=== PATIENT | male | born 1980 | race Caucasian/White ===

== ENCOUNTER 2017-10-23 18:56 | Inpatient (IN) | payer OTHER ==
[~2017-10-23] VITALS: Ht 175.3 cm; Wt 163.3 kg
--- NOTE | ~2017-10-23 | H ---
[facility] [place] [address] HISTORY AND PHYSICAL Name: [facility] Room #: 427-P ADM IN M.R.#: [id number] Admission: 10/23/17 Attend Phys: Whit Kolb Discharge: Date of : 78 Report #: [id number] THIS REPORT FOR: //name// CC: Wilbert Trujillo CHIEF COMPLAINT: Abdominal pain. HISTORY OF PRESENT ILLNESS: The patient is a 37-year-old gentleman who was seen through the Emergency Room and admitted with 2-3 days of abdominal pain. Symptoms began in the left lower quadrant, was radiating to the scrotum. He was seen in the office yesterday and recommended for a CT and was placed on empiric antibiotics; however, he worsened overnight with fever and cold sweats with nausea and presented to the ER. CT has revealed an acute diverticulitis with a microperforation. PAST MEDICAL HISTORY: None. PAST SURGICAL HISTORY: He has had some elbow surgery. FAMILY HISTORY: Noncontributory. SOCIAL HISTORY: No chronic alcohol or tobacco use. ALLERGIES: None. MEDICATIONS: Naproxen. REVIEW OF SYSTEMS: He denies headache, chest pain, shortness of breath, abdominal pain, nausea, vomiting, diarrhea, constipation, dysuria, syncope. OBJECTIVE: VITAL SIGNS: Temperature 37.2, pulse 112, respirations 18, blood pressure 122/73, O2 sat ____ on room air. GENERAL: He is awake and alert, in no distress. HEAD AND NECK: Unremarkable. LUNGS: Clear. HEART: Regular. ABDOMEN: Obese, soft, normoactive bowel sounds. Tender in the left lower quadrant. EXTREMITIES: No cyanosis, clubbing or edema. NEUROLOGIC: Cranial nerves, motor strength all intact. LABORATORY DATA: Hemoglobin 14. Glucose was 200. CT abdomen and pelvis revealed a perforated acute diverticulitis with air in the sigmoid colon. No abscess, ____ surrounding swelling. [address] [address] HISTORY AND PHYSICAL Name: [facility] Room #: 427-P ADM IN .R.#: [id number] Admission: 10/23/17 Attend Phys: Whit Kolb Discharge: Date of : 78 Report #: [id number] KUB today showed mildly dilated small bowel loops, but no free air. ASSESSMENT: 1. Acute diverticulitis with perforation. 2. Hyperglycemia. PLAN: 1. He has been assessed by Dr. Trujillo from the Surgery Service and I have asked Dr. Ian Hartman to assess for possible need of extended IV antibiotic coverage, clear liquids again today in followup with lab tomorrow. If white count is improving and pain down, then we could adjust. 2. I will adjust his IV fluids as well. <ELECTRONICALLY SIGNED> By: Geraldo Corona MD 10/24/17 [id number] [id number] Geraldo Corona MD /brittney
--- NOTE | ~2017-10-23 | HC ---
[facility] [place] [address] CONSULTATION Name: [facility] Room #: 427-P ADM IN M.R.#: [id number] Admission: 10/23/17 Attend Phys: Whit Kolb Discharge: Date of : 78 Report #: [id number] THIS REPORT FOR: //name// CC: Wilbert Trjuillo DATE OF SERVICE: 10/24/2017 REASON FOR CONSULTATION: Evaluate Diverticulitis. HISTORY OF PRESENT ILLNESS: The patient is a 37-year-old who reported a 4-day history of lower abdominal pain. He was seen in the outpatient clinic and was felt most likely to have appendicitis. He was scheduled to have a CAT scan, but the evening before his scan after having a bowel movement had excruciating pain in his abdomen, both lower abdomen and diffuse. Therefore, was brought into the Emergency Room, was found to have sigmoid diverticulitis with perforation and retroperitoneal air. No fluid collection was identified. He did have low-grade fever and some sweats. He has been on oral antibiotic therapy. Placed on Zosyn here. Given narcotics for pain and has settled down. No hypotension. patient reports that his pain is lower abdominal, diffuse with extension into his groin. Has low back pain as well without radicular features. Pain is worse with bowel movements. Has some discomfort when he micturates. He has not noticed any air in his stream or particles in the urine. Pain is relieved with narcotics. Appetite is poor. PAST MEDICAL HISTORY: Unremarkable other than right elbow surgery. FAMILY HISTORY: Diverticular disease. SOCIAL HISTORY: Recently quit smoking. No significant alcohol intake. ALLERGIES: None. MEDICATIONS: Naprosyn prior to his admission as well as oral antibiotic therapy and now on Zosyn. REVIEW OF SYSTEMS: The patient denies any skin, lymph, hematologic, lymphatic cardiopulmonary, , joint, neuro, psych, allergic issues. PHYSICAL EXAMINATION: VITAL SIGNS: Afebrile and hemodynamically stable. GENERAL: He is alert and cooperative. He is in no distress. He is moderately obese. EYES: Sclerae white. No conjunctivitis. MOUTH: No mucositis or ulcers. [facility] [address] [place] [address] CONSULTATION Name: [facility] Room #: 427-P [facility].#: [id number] Admission: 10/23/17 Attend Phys: Whit Kolb Discharge: Date of : 78 Report #: [id number] NECK: Supple. No thyromegaly or mass. No peripheral adenopathy. SKIN: Unremarkable with no rash or ulcerations. LUNGS: Clear. HEART: Regular, without murmur. ABDOMEN: Protuberant, tenderness in the lower abdomen with no guarding or rebound. No hepatosplenomegaly or mass. GENITOURINARY: External genitalia unremarkable. EXTREMITIES: Without edema. NEUROLOGIC: Nonfocal. BACK: Normal. Mental status was normal. His mood was normal with no anxiety or depression. LABORATORY STUDIES: Sodium 134, potassium 3.9, bicarbonate 24, creatinine 1.1. Nonfasting glucose 202. Hemoglobin 13.5, WBC 14.7, platelet count 223,000, differential unremarkable other than 84% neutrophils, 8% lymphs. CT scan of the abdomen and pelvis as noted above. There is marked circumferential wall thickening of the sigmoid colon with a short segment adjacent diverticula, free air in the pelvis extending cephalad to the anterior adrenal space into the upper abdomen. No abscess seen. All the air was in the retroperitoneal space. Urinalysis unremarkable. IMPRESSION: A 37-year-old with acute diverticulitis with perforation into the retroperitoneum. No definite abscess. RECOMMENDATION: We will continue Zosyn. The patient will require IV antibiotic therapy for an extended period of time until this all calms down. We will follow his white count and symptoms. May need repeat imaging studies prior to discharge. <ELECTRONICALLY SIGNED> By: Ian Hartman MD 10/25/17 [id number] Ian Hartman MD /nt
[~2017-10-23 18:56] MED LIST: FLEXERIL PO; NAPROSYN500 MG PO; NORCO 5-325 TA1 EACH PO
[2017-10-23 18:57] VITALS: BP 131/97
[2017-10-23 20:11] LABS: ABSOLUTE NEUTROPHILS 11.2 thou/uL (1.4-8.2); BASOPHILS 0.5 % (0.0-2.0); EOSINOPHILS 1.5 % (0.0-3.0); HEMATOCRIT 43.1 % (42.0-52.0); HEMOGLOBIN 14.8 gm/dL (14.0-18.0); LYMPHOCYTES 10.8 % (24.0-44.0); MCH 28.5 pg (26.0-34.0); MCHC 34.4 g/dL (28.0-37.0); MCV 82.9 fL (80.0-100.0); MONOCYTES 6.1 % (1.0-8.0); PLATELET COUNT 245 thou/uL (150-400); POLYS 81.1 % (36.0-66.0); RDW 13.3 % (10.5-14.5); WBC 13.9 thou/uL (4.0-11.0)
[2017-10-23 20:20] LABS: CALCIUM 9.3 mg/dL (8.5-10.1); CREATININE 1.1 mg/dL (0.7-1.3); POTASSIUM 3.5 mmol/L (3.5-5.1)
[2017-10-23 20:26] LABS: ALBUMIN 3.6 g/dL (3.4-5.0); DIRECT BILIRUBIN 0.3 mg/dL (<0.1-0.3); TOTAL BILIRUBIN 0.8 mg/dL (<0.1-1.0); TOTAL PROTEIN 8.1 g/dL (6.4-8.2)
[2017-10-23 22:51] LABS: URINE BILIRUBIN NEGATIVE (Negative); URINE BLOOD NEGATIVE (Negative); URINE CLARITY CLEAR; URINE COLOR YELLOW; URINE GLUCOSE-RANDOM* 1+ (Negative); URINE KETONES 2+ (Negative); URINE LEUKOCYTES NEGATIVE (Negative); URINE NITRITE NEGATIVE (Negative); URINE PROTEIN (DIPSTICK) NEGATIVE (Negative); URINE SPECIFIC GRAVITY <= 1.005 (1.005-1.035)
[2017-10-23 22:53] VITALS: BP 158/95
[2017-10-23 23:07] VITALS: BP 158/95
[2017-10-24] VITALS: BP 152/72
[2017-10-24 03:15] VITALS: BP 120/74
[2017-10-24 07:29] VITALS: BP 122/73
[2017-10-24 08:24] LABS: ABSOLUTE NEUTROPHILS 12.3 thou/uL (1.4-8.2); BASOPHILS 0.6 % (0.0-2.0); EOSINOPHILS 0.2 % (0.0-3.0); HEMATOCRIT 39.1 % (42.0-52.0); HEMOGLOBIN 13.5 gm/dL (14.0-18.0); LYMPHOCYTES 8.8 % (24.0-44.0); MCH 28.9 pg (26.0-34.0); MCHC 34.5 g/dL (28.0-37.0); MCV 83.9 fL (80.0-100.0); MONOCYTES 6.5 % (1.0-8.0); PLATELET COUNT 223 thou/uL (150-400); POLYS 83.9 % (36.0-66.0); RBC 4.67 mil/uL (4.50-6.00); RDW 13.4 % (10.5-14.5); WBC 14.7 thou/uL (4.0-11.0)
[2017-10-24 08:33] LABS: CALCIUM 8.6 mg/dL (8.5-10.1); CREATININE 1.1 mg/dL (0.7-1.3); POTASSIUM 3.9 mmol/L (3.5-5.1)
[2017-10-24 16:21] VITALS: BP 122/78
[2017-10-24 19:42] VITALS: BP 135/78
[2017-10-25 04:10] LABS: GLYCOHEMOGLOBIN (HGB A1C) 8.1 % (4.8-5.6)
[2017-10-25 04:33] VITALS: BP 138/89
[2017-10-25 08:50] LABS: HEMATOCRIT 40.2 % (42.0-52.0); HEMOGLOBIN 13.7 gm/dL (14.0-18.0); MCH 28.6 pg (26.0-34.0); MCV 84.2 fL (80.0-100.0); RBC 4.77 mil/uL (4.50-6.00); WBC 10.1 thou/uL (4.0-11.0)
[2017-10-25 09:13] LABS: CALCIUM 9.1 mg/dL (8.5-10.1); CREATININE 1.1 mg/dL (0.7-1.3); POTASSIUM 3.2 mmol/L (3.5-5.1); TOTAL BILIRUBIN 0.8 mg/dL (<0.1-1.0); TOTAL PROTEIN 7.7 g/dL (6.4-8.2)
[2017-10-25 09:43] VITALS: BP 140/86
[2017-10-25 16:17] VITALS: BP 132/83
[2017-10-25 20:09] VITALS: BP 140/88
[2017-10-26 03:45] VITALS: BP 124/88
[2017-10-26 08:15] VITALS: BP 128/80
[2017-10-26 10:38] VITALS: BP 128/80
[2017-10-26] MEDS ORDERED: SENNA-TIME S T1 EACH PO (10:42)
[2017-10-26] MEDS ORDERED: ZOSYN 3.3753.375 GM IV (10:43)
[2017-10-26] MEDS ORDERED: HYDROCODON-ACE1 EAC7 PO (10:43)
[2017-10-26 14:52] VITALS: BP 128/80
== END 2017-10-26 15:15 | disposition home health service (06) | DRG 392 ==
LOC: ER 18:56 → 4E 22:18 → EROBS 22:18 → 4E 23:17
PROVIDERS: Internal Medicine; Internal Medicine Geriatric Medicine; Physician Assistant; Surgery
PROC: 05HY33Z Insertion of Infusion Device into Upper Vein, Percutaneous Approach (ICD-10-PCS; principal; 2017-10-25)
PROC: B54MZZA Ultrasonography of Right Upper Extremity Veins, Guidance (ICD-10-PCS; principal; 2017-10-25)
DX: K57.20 Diverticulitis of large intestine with perforation and abscess without bleeding (principal); Z68.43 Body mass index [BMI] 50.0-59.9, adult; R65.10 Systemic inflammatory response syndrome (SIRS) of non-infectious origin without acute organ dysfunction; R73.9 Hyperglycemia, unspecified; E87.6 Hypokalemia; E66.9 Obesity, unspecified; Z87.891 Personal history of nicotine dependence
CPT/HCPCS: 10084; 27001

== ENCOUNTER → 2017-11-06 | Outpatient (CLI) | payer OTHER ==
[~2017-11-06] MED LIST changes: +HYDROCODON-ACE1 EAC7 PO; +SENNA-TIME S T1 EACH PO; +ZOSYN 3.3753.375 GM IV
== END ==
LOC: CAT 14:45
DX: K57.32 Diverticulitis of large intestine without perforation or abscess without bleeding (principal); N45.1 Epididymitis; K52.9 Noninfective gastroenteritis and colitis, unspecified; K35.3 Acute appendicitis with localized peritonitis; R30.0 Dysuria

== ENCOUNTER → 2018-05-08 | Outpatient (CLI) | payer OTHER | LOC: CAT 07:26 | DX: K76.0 Fatty (change of) liver, not elsewhere classified (principal); R19.03 Right lower quadrant abdominal swelling, mass and lump ==

== ENCOUNTER 2018-05-14 17:13 | Emergency (ER) | payer OTHER ==
[~2018-05-14] VITALS: Ht 175.3 cm; Wt 122.5 kg
[2018-05-14] MEDS ORDERED: NEURONTIN 300300 M1 PO (17:20)
[2018-05-14 17:57] LABS: BASOPHILS 0.9 % (0.0-2.0); EOSINOPHILS 1.2 % (0.0-3.0); HEMATOCRIT 42.9 % (42.0-52.0); HEMOGLOBIN 14.4 gm/dL (14.0-18.0); LYMPHOCYTES 25.2 % (24.0-44.0); MCH 27.1 pg (26.0-34.0); MCHC 33.7 g/dL (28.0-37.0); MCV 80.4 fL (80.0-100.0); MONOCYTES 6.6 % (1.0-8.0); PLATELET COUNT 268 thou/uL (150-400); POLYS 66.1 % (36.0-66.0); RBC 5.34 mil/uL (4.50-6.00); RDW 13.6 % (10.5-14.5); WBC 7.5 thou/uL (4.0-11.0)
[2018-05-14 18:10] LABS: CALCIUM 9.5 mg/dL (8.5-10.1); POTASSIUM 3.9 mmol/L (3.5-5.1)
[2018-05-14 18:16] LABS: ALBUMIN 3.4 g/dL (3.4-5.0); TOTAL BILIRUBIN 0.2 mg/dL (<0.1-1.0); TOTAL PROTEIN 8.3 g/dL (6.4-8.2)
[2018-05-14] MEDS ORDERED: AUGMENTIN 875-1 EACH PO (19:41)
[2018-05-14] MEDS ORDERED: NORCO 5-325 TA1 EACH PO (19:41)
[2018-05-14 19:52] VITALS: BP 124/84
== END 2018-05-14 19:54 | disposition home or self-care (01) ==
LOC: ER 17:13
PROVIDERS: Nurse Practitioner Family
DX: T81.40XA Infection following a procedure, unspecified, initial encounter (principal); L03.311 Cellulitis of abdominal wall; R73.9 Hyperglycemia, unspecified

== ENCOUNTER → 2018-05-22 | Outpatient (CLI) | payer OTHER ==
[~2018-05-22] MED LIST changes: +AUGMENTIN 875-1 EACH PO; +NEURONTIN 300300 M1 PO
== END ==
LOC: HYPER 05-21 15:04
DX: T81.49XD Infection following a procedure, other surgical site, subsequent encounter (principal); E66.01 Morbid (severe) obesity due to excess calories; L02.211 Cutaneous abscess of abdominal wall; G43.909 Migraine, unspecified, not intractable, without status migrainosus; Z68.39 Body mass index [BMI] 39.0-39.9, adult; Z87.891 Personal history of nicotine dependence; Y83.8 Other surgical procedures as the cause of abnormal reaction of the patient, or of later complication, without mention of misadventure at the time of the procedure

== ENCOUNTER → 2018-05-29 | Outpatient (CLI) | payer OTHER | LOC: HYPER 06:36 | DX: T81.49XD Infection following a procedure, other surgical site, subsequent encounter (principal); L02.211 Cutaneous abscess of abdominal wall; E66.01 Morbid (severe) obesity due to excess calories; G43.909 Migraine, unspecified, not intractable, without status migrainosus; Z87.891 Personal history of nicotine dependence; Z68.39 Body mass index [BMI] 39.0-39.9, adult; Y83.8 Other surgical procedures as the cause of abnormal reaction of the patient, or of later complication, without mention of misadventure at the time of the procedure ==

== ENCOUNTER → 2018-06-12 | Outpatient (CLI) | payer OTHER | LOC: HYPER 06:47 | DX: T81.49XD Infection following a procedure, other surgical site, subsequent encounter (principal); L02.211 Cutaneous abscess of abdominal wall; E66.01 Morbid (severe) obesity due to excess calories; G43.909 Migraine, unspecified, not intractable, without status migrainosus; Z87.891 Personal history of nicotine dependence; Z68.39 Body mass index [BMI] 39.0-39.9, adult; Y83.8 Other surgical procedures as the cause of abnormal reaction of the patient, or of later complication, without mention of misadventure at the time of the procedure ==